=== PATIENT | male | born 1985 | race Caucasian/White ===

== ENCOUNTER → 2019-05-15 | Outpatient (CLI) | payer BC ==
--- NOTE | 2019-05-15 16:53 | KCIC ---
MRI of the cervical spine without contrast 05/15/2019 CLINICAL HISTORY: Neck pain with right shoulder pain. TECHNIQUE: Unenhanced T1-weighted, T2-weighted and inversion recovery sagittal and gradient echo and T2-weighted axial images of the cervical spine were obtained. FINDINGS: Some of the images are degraded by patient motion. Minimal lateral curvature of the cervical spine is seen convex to the left. There is straightening of the normal cervical lordosis. Degenerative signal changes are seen involving all of the disks of the cervical spine. The marrow signal of the visualized bony structures is within normal limits. The cervical spinal cord is normal morphology, position, and signal characteristics. On the axial images throughout the cervical disc spaces, very mild degenerative changes are seen consisting of minimal to mild generalized disc bulges and degenerative changes involving the uncovertebral and facet joints bilaterally. These findings do not result in significant central spinal canal or neural foraminal stenosis. No focal disc herniation is seen. IMPRESSION: Very mild degenerative changes are seen involving cervical spine as discussed above. No significant central spinal canal or neural foraminal stenosis is seen. Electronically signed by: Tomy Yepez MD (05/15/2019 4:49 PM) [id number]
== END | disposition home or self-care (01) ==
LOC: KCIC MRI 15:14
PROVIDERS: ATTEND Orthopaedic Surgery
DX: M47.812 Spondylosis without myelopathy or radiculopathy, cervical region (principal)
CPT/HCPCS: 72141